=== PATIENT | male | born 1970 | race African-American/Black ===

== ENCOUNTER 2020-05-06 07:57 | Day surgery (SDC) | payer OTHER ==
[2020-05-06] MEDS ORDERED: Acetaminophen 500 MG TAB PO PRN ×2 (08:26→08:28)
[2020-05-06] MEDS ORDERED: INFLIXIMAB ABDA IVPB SCH (08:30)
[2020-05-06] MEDS ORDERED: Sodium Chloride 0.9% 1,000 ML IV SCH (08:30)
[2020-05-06] MEDS ORDERED: SODIUM CHLORIDE 0.9% IVPB SCH (08:30)
[2020-05-06] MEDS ORDERED: Sodium Chloride 0.9% 20 ML ONE (08:36)
[2020-05-06 08:52] VITALS: BP 115/69; TEMP 98
== END 2020-05-06 12:01 | disposition home or self-care (01) ==
LOC: ONC/OP 07:57
PROVIDERS: ATTEND Internal Medicine Gastroenterology
DX: K50.90 Crohn's disease, unspecified, without complications (principal)
CPT/HCPCS: 96413; 96415; J2274; J7050

== ENCOUNTER 2020-05-20 08:36 | Day surgery (SDC) | payer OTHER ==
[~2020-05-20 08:36] MED LIST: Acetaminophen 500 MG TAB PO PRN; INFLIXIMAB ABDA IVPB SCH; SODIUM CHLORIDE 0.9% IVPB SCH; Sodium Chloride 0.9% 1,000 ML IV SCH
[2020-05-20] MEDS ORDERED: SODIUM CHLORIDE 0.9% IVPB SCH (09:00)
[2020-05-20] MEDS ORDERED: INFLIXIMAB ABDA IVPB SCH (09:00)
[2020-05-20] MEDS ORDERED: Sodium Chloride 0.9% 20 ML ONE (09:02)
[2020-05-20 09:55] VITALS: BP 134/68; TEMP 98.8
== END 2020-05-20 11:32 | disposition home or self-care (01) ==
LOC: ONC/OP 08:36
PROVIDERS: ATTEND Internal Medicine Gastroenterology
DX: K50.90 Crohn's disease, unspecified, without complications (principal)
CPT/HCPCS: 96413; 96415; J2274; J7050

== ENCOUNTER 2020-06-17 08:13 | Day surgery (SDC) | payer OTHER ==
[~2020-06-17 08:13] MED LIST changes: -Acetaminophen 500 MG TAB PO PRN; +Acetaminophen 500 MG TAB PO SCH
[2020-06-17 08:37] VITALS: BP 115/70; TEMP 97.7
[2020-06-17] MEDS ORDERED: Sodium Chloride 0.9% 20 ML ONE (08:39)
== END 2020-06-17 12:11 | disposition home or self-care (01) ==
LOC: ONC/OP 08:13
PROVIDERS: ATTEND Internal Medicine Gastroenterology
DX: K50.90 Crohn's disease, unspecified, without complications (principal)
CPT/HCPCS: 96413; 96415; J2274; J7050

== ENCOUNTER 2020-08-09 08:06 | Day surgery (SDC) | payer OTHER ==
[2020-08-09] MEDS ORDERED: Sodium Chloride 0.9% 20 ML ONE (09:35)
[2020-08-09 10:49] VITALS: BP 105/59; TEMP 98.5
== END 2020-08-09 11:58 | disposition home or self-care (01) ==
LOC: ONC/OP 08:06
PROVIDERS: ATTEND Internal Medicine Gastroenterology
DX: K50.90 Crohn's disease, unspecified, without complications (principal)
CPT/HCPCS: 96413; 96415; J2274; J7050

== ENCOUNTER 2020-11-06 08:29 | Day surgery (SDC) | payer OTHER ==
[2020-11-06 08:58] VITALS: BP 101/60; TEMP 98.6
== END 2020-11-06 14:40 | disposition home or self-care (01) ==
LOC: ONC/OP 08:29
PROVIDERS: ATTEND Internal Medicine Gastroenterology
DX: K50.90 Crohn's disease, unspecified, without complications (principal)
CPT/HCPCS: 96413; 96415; J7050; Q5104

== ENCOUNTER 2020-12-04 09:07 | Day surgery (SDC) | payer OTHER ==
[~2020-12-04 09:07] MED LIST changes: -Sodium Chloride 0.9% 1,000 ML IV SCH
[2020-12-04] MEDS ORDERED: Sodium Chloride 0.9% 20 ML ONE (09:15)
[2020-12-04 09:56] VITALS: BP 86/59; TEMP 97.9
== END 2020-12-04 12:25 | disposition home or self-care (01) ==
LOC: ONC/OP 09:07
PROVIDERS: ATTEND Internal Medicine Gastroenterology
DX: K50.90 Crohn's disease, unspecified, without complications (principal)
CPT/HCPCS: 96413; 96415; J7050; Q5104

== ENCOUNTER 2021-01-03 10:09 | Day surgery (SDC) | payer OTHER ==
[2021-01-03] MEDS ORDERED: Sodium Chloride 0.9% 20 ML ONE (10:16)
[2021-01-03 10:30] VITALS: BP 90/56; TEMP 98
[2021-01-03] MEDS ORDERED: Sodium Chloride 0.9% 1,000 ML IV SCH (10:30)
[2021-01-03] MEDS ORDERED: Acetaminophen 500 MG TAB PO SCH (10:30)
[2021-01-03] MEDS ORDERED: SODIUM CHLORIDE 0.9% IVPB SCH (10:45)
[2021-01-03] MEDS ORDERED: INFLIXIMAB ABDA IVPB SCH (10:45)
== END 2021-01-03 13:54 | disposition home or self-care (01) ==
LOC: ONC/OP 10:09
PROVIDERS: ATTEND Internal Medicine Gastroenterology
DX: K50.90 Crohn's disease, unspecified, without complications (principal)
CPT/HCPCS: 96413; 96415

== ENCOUNTER 2021-02-03 10:02 | Day surgery (SDC) | payer OTHER ==
[2021-02-03] MEDS ORDERED: INFLIXIMAB ABDA IVPB SCH (10:30)
[2021-02-03] MEDS ORDERED: Acetaminophen 500 MG TAB PO SCH (10:30)
[2021-02-03] MEDS ORDERED: SODIUM CHLORIDE 0.9% IVPB SCH (10:30)
[2021-02-03 10:40] VITALS: BP 100/68
== END 2021-02-03 14:14 | disposition home or self-care (01) ==
LOC: ONC/OP 10:02
PROVIDERS: ATTEND Internal Medicine Gastroenterology
DX: K50.90 Crohn's disease, unspecified, without complications (principal)
CPT/HCPCS: 96413; 96415

== ENCOUNTER 2021-03-03 09:50 | Day surgery (SDC) | payer OTHER ==
[~2021-03-03 09:50] MED LIST changes: +Sodium Chloride 0.9% 1,000 ML IV SCH
[2021-03-03 10:06] VITALS: BP 107/61; TEMP 98.1
[2021-03-03] MEDS ORDERED: Sodium Chloride 0.9% 10 ML ONE ×2 (10:09)
[2021-03-03] MEDS ORDERED: Acetaminophen 500 MG TAB ONE (11:03)
== END 2021-03-03 13:30 | disposition home or self-care (01) ==
LOC: ONC/OP 09:50
PROVIDERS: ATTEND Internal Medicine Gastroenterology
DX: K50.90 Crohn's disease, unspecified, without complications (principal)
CPT/HCPCS: 96413; 96415

== ENCOUNTER 2021-04-21 10:59 | Day surgery (SDC) | payer OTHER ==
[~2021-04-21 10:59] MED LIST changes: -Acetaminophen 500 MG TAB PO SCH; -Sodium Chloride 0.9% 1,000 ML IV SCH
[2021-04-21] MEDS ORDERED: Acetaminophen 500 MG TAB ONE (11:09)
[2021-04-21] MEDS ORDERED: Sodium Chloride 0.9% 10 ML ONE ×2 (11:09)
[2021-04-21 11:26] VITALS: BP 113/67
== END 2021-04-21 14:13 | disposition home or self-care (01) ==
LOC: ONC/OP 10:59
PROVIDERS: ATTEND Internal Medicine Gastroenterology
DX: K50.90 Crohn's disease, unspecified, without complications (principal)
CPT/HCPCS: 96413; 96415

== ENCOUNTER 2021-05-19 10:35 | Day surgery (SDC) | payer OTHER ==
[~2021-05-19 10:35] MED LIST changes: +Acetaminophen 500 MG TAB PO SCH; +Sodium Chloride 0.9% 1,000 ML IV SCH
[2021-05-19 10:55] VITALS: BP 80/51; TEMP 99.4
[2021-05-19] MEDS ORDERED: Acetaminophen 500 MG TAB ONE (11:03)
== END 2021-05-19 14:46 | disposition home or self-care (01) ==
LOC: ONC/OP 10:35
PROVIDERS: ATTEND Internal Medicine Gastroenterology
DX: K50.90 Crohn's disease, unspecified, without complications (principal)
CPT/HCPCS: 96413; 96415

== ENCOUNTER 2021-07-14 11:11 | Day surgery (SDC) | payer OTHER ==
[2021-07-14] MEDS ORDERED: Acetaminophen 500 MG TAB ONE (11:34)
[2021-07-14 12:09] VITALS: BP 90/50; TEMP 98.3
== END 2021-07-14 14:08 | disposition home or self-care (01) ==
LOC: ONC/OP 11:11
PROVIDERS: ATTEND Internal Medicine Gastroenterology
DX: K50.90 Crohn's disease, unspecified, without complications (principal)
CPT/HCPCS: 96413; 96415

== ENCOUNTER 2021-08-12 11:02 | Day surgery (SDC) | payer OTHER ==
[2021-08-12] MEDS ORDERED: Acetaminophen 500 MG TAB ONE (11:22)
[2021-08-12 11:41] VITALS: BP 109/59; TEMP 97.9
== END 2021-08-12 15:40 | disposition home or self-care (01) ==
LOC: ONC/OP 11:02
PROVIDERS: ATTEND Internal Medicine Gastroenterology
DX: K50.90 Crohn's disease, unspecified, without complications (principal)
CPT/HCPCS: 96413; 96415

== ENCOUNTER 2021-09-09 11:06 | Day surgery (SDC) | payer OTHER ==
[2021-09-09] MEDS ORDERED: Acetaminophen 500 MG TAB ONE (11:35)
[2021-09-09 14:38] VITALS: TEMP 98.9
[2021-09-09 14:47] VITALS: BP 72/40
== END 2021-09-09 15:34 | disposition home or self-care (01) ==
LOC: ONC/OP 11:06
PROVIDERS: ATTEND Internal Medicine Gastroenterology
DX: K50.90 Crohn's disease, unspecified, without complications (principal)
CPT/HCPCS: 96361; 96413; 96415

== ENCOUNTER 2021-10-07 10:54 | Day surgery (SDC) | payer OTHER ==
[2021-10-07] MEDS ORDERED: Acetaminophen 500 MG TAB ONE (11:13)
[2021-10-07 11:45] VITALS: BP 113/55; TEMP 98.2
== END 2021-10-07 14:22 | disposition home or self-care (01) ==
LOC: ONC/OP 10:54
PROVIDERS: ATTEND Internal Medicine Gastroenterology
DX: K50.90 Crohn's disease, unspecified, without complications (principal)
CPT/HCPCS: 96413; 96415

== ENCOUNTER 2021-11-04 11:07 | Day surgery (SDC) | payer OTHER ==
[~2021-11-04 11:07] MED LIST changes: +Acetaminophen 500 MG TAB ONE; +INFLIXIMAB IVPB SCH
[2021-11-04 12:10] VITALS: BP 122/71; TEMP 97.7
== END 2021-11-04 16:08 | disposition home or self-care (01) ==
LOC: ONC/OP 11:07
PROVIDERS: ATTEND Internal Medicine Gastroenterology
DX: K50.90 Crohn's disease, unspecified, without complications (principal)
CPT/HCPCS: 96413; 96415

== ENCOUNTER 2021-12-02 10:56 | Day surgery (SDC) | payer OTHER ==
[~2021-12-02 10:56] MED LIST changes: -Acetaminophen 500 MG TAB ONE; -INFLIXIMAB IVPB SCH
[2021-12-02] MEDS ORDERED: Acetaminophen 500 MG TAB ONE (11:13)
[2021-12-02 11:39] VITALS: BP 118/62; TEMP 98.5
== END 2021-12-02 14:16 | disposition home or self-care (01) ==
LOC: ONC/OP 10:56
PROVIDERS: ATTEND Internal Medicine Gastroenterology
DX: K50.90 Crohn's disease, unspecified, without complications (principal); K60.3 Anal fistula
CPT/HCPCS: 96413; 96415

== ENCOUNTER 2021-12-30 10:52 | Day surgery (SDC) | payer OTHER ==
[2021-12-30 11:22] VITALS: BP 104/68; TEMP 97.9
[2021-12-30] MEDS ORDERED: Acetaminophen 500 MG TAB ONE (11:30)
== END 2021-12-30 17:07 | disposition home or self-care (01) ==
LOC: ONC/OP 10:52
PROVIDERS: ATTEND Internal Medicine Gastroenterology
DX: K50.90 Crohn's disease, unspecified, without complications (principal)
CPT/HCPCS: 96413; 96415

== ENCOUNTER 2022-01-27 10:59 | Day surgery (SDC) | payer OTHER ==
[~2022-01-27 10:59] MED LIST changes: +diphenhydrAMINE 25 MG CAP PO SCH
[2022-01-27] MEDS ORDERED: diphenhydrAMINE 25 MG CAP ONE (11:36)
[2022-01-27] MEDS ORDERED: Acetaminophen 500 MG TAB ONE (11:36)
[2022-01-27 11:44] VITALS: BP 129/75; TEMP 98.1
== END 2022-01-27 15:47 | disposition home or self-care (01) ==
LOC: ONC/OP 10:59
PROVIDERS: ATTEND Internal Medicine Gastroenterology
DX: K50.90 Crohn's disease, unspecified, without complications (principal)
CPT/HCPCS: 96413; 96415

== ENCOUNTER 2022-02-25 10:59 | Day surgery (SDC) | payer OTHER ==
[2022-02-25] MEDS ORDERED: diphenhydrAMINE 25 MG CAP ONE (11:23)
[2022-02-25] MEDS ORDERED: Acetaminophen 500 MG TAB ONE (11:23)
[2022-02-25 13:15] VITALS: BP 123/70; TEMP 97.4
== END 2022-02-25 13:47 | disposition home or self-care (01) ==
LOC: ONC/OP 10:59
PROVIDERS: ATTEND Internal Medicine Gastroenterology
DX: K50.90 Crohn's disease, unspecified, without complications (principal)
CPT/HCPCS: 96413; 96415

== ENCOUNTER 2022-04-14 10:52 | Day surgery (SDC) | payer OTHER ==
[~2022-04-14 10:52] MED LIST changes: -INFLIXIMAB ABDA IVPB SCH; +INFLIXIMAB-DYYB 500 MG in Sodium Chloride 0.9% 250 ML 200 ML IV SCH; -SODIUM CHLORIDE 0.9% IVPB SCH
[2022-04-14 13:15] VITALS: TEMP 97.7
[2022-04-14 13:47] VITALS: BP 103/52
== END 2022-04-14 13:51 | disposition home or self-care (01) ==
LOC: ONC/OP 10:52
PROVIDERS: ATTEND Internal Medicine Gastroenterology
DX: K50.90 Crohn's disease, unspecified, without complications (principal)
CPT/HCPCS: 96413; 96415; J7050; Q5103

== ENCOUNTER 2022-05-12 11:06 | Day surgery (SDC) | payer OTHER ==
[~2022-05-12 11:06] MED LIST changes: -INFLIXIMAB-DYYB 500 MG in Sodium Chloride 0.9% 250 ML 200 ML IV SCH; +INFLIXIMAB-DYYB 500 MG in Sodium Chloride 0.9% 250 ML 200 ML IVPB SCH
[2022-05-12] MEDS ORDERED: diphenhydrAMINE 25 MG CAP ONE (11:20)
[2022-05-12] MEDS ORDERED: Acetaminophen 500 MG TAB ONE (11:20)
[2022-05-12 12:08] VITALS: BP 110/55; TEMP 98.5
== END 2022-05-12 13:45 | disposition home or self-care (01) ==
LOC: ONC/OP 11:06
PROVIDERS: ATTEND Internal Medicine Gastroenterology
DX: K50.90 Crohn's disease, unspecified, without complications (principal)
CPT/HCPCS: 96413; 96415; J7050; Q5103

== ENCOUNTER 2022-06-09 10:53 | Day surgery (SDC) | payer OTHER ==
[2022-06-09] MEDS ORDERED: Acetaminophen 500 MG TAB ONE (11:14)
[2022-06-09] MEDS ORDERED: diphenhydrAMINE 25 MG CAP ONE (11:14)
[2022-06-09 11:47] VITALS: BP 123/65; TEMP 98
== END 2022-06-09 13:45 | disposition home or self-care (01) ==
LOC: ONC/OP 10:53
PROVIDERS: ATTEND Internal Medicine Gastroenterology
DX: K50.90 Crohn's disease, unspecified, without complications (principal)
CPT/HCPCS: 96413; 96415; J7050; Q5103

== ENCOUNTER 2022-07-07 10:56 | Day surgery (SDC) | payer OTHER ==
[~2022-07-07 10:56] MED LIST changes: +INFLIXIMAB-DYYB 500 MG in Sodium Chloride 0.9% 250 ML 200 ML IV SCH; -INFLIXIMAB-DYYB 500 MG in Sodium Chloride 0.9% 250 ML 200 ML IVPB SCH
[2022-07-07] MEDS ORDERED: Acetaminophen 500 MG TAB ONE (11:27)
[2022-07-07] MEDS ORDERED: diphenhydrAMINE 25 MG CAP ONE (11:27)
[2022-07-07 11:39] VITALS: BP 112/63; TEMP 98.1
== END 2022-07-07 13:49 | disposition home or self-care (01) ==
LOC: ONC/OP 10:56
PROVIDERS: ATTEND Internal Medicine Gastroenterology
DX: K50.90 Crohn's disease, unspecified, without complications (principal)
CPT/HCPCS: 96413; 96415; J7050; Q5103